=== PATIENT | female | born 1965 | race Caucasian/White ===

== ENCOUNTER → 2019-09-07 | Outpatient (CLI) | payer BC ==
[2019-09-07 18:07] LABS: Anisocytosis Slight; Basophils # (A) 0.1 k/uL (0-0.2); Basophils % (A) 1 %; Eosinophils # (A) 0.2 k/uL (0-0.7); Eosinophils % (A) 2 %; HCT 35.9 % (34.0-46.0); HGB 10.1 gm/dL (11.4-16.0); Hypochromasia Marked; Lymphocytes # (A) 1.8 k/uL (1.0-4.8); Lymphocytes % (A) 18 %; MCH 21.6 pg (25.0-35.0); MCHC 28.1 g/dL (31.0-37.0); MCV 76.8 fL (80.0-100.0); Mean Platelet Volume 6.2; Microcytosis Slight; Monocytes # (A) 0.5 k/uL (0-1.0); Monocytes % (A) 6 %; Neutrophils % (A) 71 %; Platelet Count 400 k/uL (150-450); RBC 4.67 m/uL (3.80-5.40); WBC 9.9 k/uL (3.8-10.6)
== END | disposition home or self-care (01) ==
LOC: LABT 17:15
PROVIDERS: ATTEND Obstetrics & Gynecology
DX: Z01.812 Encounter for preprocedural laboratory examination (principal); Z01.818 Encounter for other preprocedural examination; N93.8 Other specified abnormal uterine and vaginal bleeding; I10 Essential (primary) hypertension
CPT/HCPCS: 85025; 93005

== ENCOUNTER 2019-09-13 07:40 | Day surgery (SDC) | payer BC ==
[2019-09-08 13:18] VITALS: BMI 38.7
[~2019-09-13 07:40] MED LIST: DEXAMETHASONE SOD PHOSPHATE 10 MG/ML 1 ML VIAL IV ONE; LACTATED RINGERS 1,000 ML IV SCH; MIDAZOLAM 2 MG/2 ML VIAL IV PRN; ONDANSETRON 4 MG/2 ML VIAL IVP ONE; Pre Op ABX Message 1 EACH MISC MISCELLANE ONE; SCOPOLAMINE 1.5MG/72HR PATCH TRANSDERM ONE
[2019-09-13] MEDS ORDERED: LIDOCAINE 1% 20 ML VIAL (10MG/ML) FOR IV START INTRADERMA ONE (08:17)
[2019-09-13] MEDS ORDERED: SUCCINYLCHOLINE CHLORIDE 100 MG/5 ML SYR IV ONE (08:20)
[2019-09-13] MEDS ORDERED: LIDOCAINE 1% INJ 10MG/ML (20 ML MDV) ONE (08:20)
[2019-09-13] MEDS ORDERED: KETOROLAC 30 MG/ML 1 ML VIAL ONE (08:20)
[2019-09-13] MEDS ORDERED: PROPOFOL 10 MG/ML 20 ML VIAL IV ONE (08:20)
[2019-09-13] MEDS ORDERED: fentaNYL (PF) 50 MCG/ML 2 ML AMP ONE (08:20)
[2019-09-13] MEDS ORDERED: LIDOCAINE 1%-EPI 1:100,000 20 ML VIAL SUBMUCOSAL ONE (08:21)
--- NOTE | 2019-09-13 09:04 | P.OP ---
Date of Procedure: 09/13/19 Preoperative Diagnosis: Menometrorrhagia Anemia Postoperative Diagnosis: Same Procedure(s) Performed: Diagnostic hysteroscopy and NovaSure endometrial ablation Anesthesia: CONCHITA Surgeon: Tori Jarvis Estimated Blood Loss (ml): 5 IV fluids (ml): 700 Urine output (ml): 25 Pathology: none sent Condition: stable Disposition: PACU Operative Findings: Patulous cervix. Uterus with fluffy endometrium. Bilateral tubal ostia visual ized. No gross intracavitary lesions noted. Description of Procedure: After the patient was met in the preoperative holding area and all questions were answered, she was taken the operating room where anesthetic was administered without incident. Appropriate timeout procedure was undertaken. She was positioned, prepped and draped in the dorsal lithotomy position. Blad wilfrid was drained for approximately 25 mL of clear urine. Exam under anesthetic was undertaken. The patient has a second-degree cystocele and third degree rectocele. She second-degree cervical uterine prolapse with a large patulous cervix. There was no evidence of rectovaginal fistula. The cervix was grasped anteriorly with a single-tooth tenaculum and a paracervical block with lidocaine plus epinephrine was placed. This uterus was sounded to 11 cm. The cervix is already dilated oneither dilation was noted to allow for passage of the diagnostic hysteroscope. The hysteroscope was introduced and the above findings were noted. The hysteroscope was removed and the NovaSure ablation device was inserted. On cavity length was 6 cm with a width of 3.5 cm. There was a poor see around the cervix which was eventually resolved by replacement of a tenaculum to hold the NovaSure device in place. The cavity assessment test was then passed. The device was enabled for a treatment cycle 68 seconds at a power of 116 W. Following cessation of the treatment cycle the device was removed. The hysteroscope was reintroduced and desiccation of the endometrium was noted. The hysteroscope was then removed as was the tenaculum. The entire vagina was again inspected operative the patient's request and no evidence of any type of acute indication from the rectum to the vagina is noted. She does have large external hemorrhoids. All instruments were then removed and the patient was awoken from anesthetic. She was transported recovery area in stable condition. All counts reported to me as correct by the operating room staff.
[2019-09-13 09:16] VITALS: TEMP 97.1
[2019-09-13] MEDS: HYDROmorphone 0.5 MG/0.5 ML SYRINGE IVP PRN ×2 (09:24→09:31)
[2019-09-13] MEDS ORDERED: LACTATED RINGERS 1,000 ML IV ONE ×2 (09:58)
[2019-09-13] MEDS ORDERED: PROMETHAZINE INJ 25 MG/ML 1 ML VIAL IVPB ONE (10:22)
[2019-09-13 10:49] VITALS: RESP 18
[2019-09-13 11:42] VITALS: BP 123/75; PULSE 76
== END 2019-09-13 12:00 | disposition home or self-care (01) ==
LOC: OR 07:40
PROVIDERS: ATTEND Obstetrics & Gynecology
DX: N92.1 Excessive and frequent menstruation with irregular cycle (principal); Z79.82 Long term (current) use of aspirin; Z79.899 Other long term (current) drug therapy; J45.909 Unspecified asthma, uncomplicated; I10 Essential (primary) hypertension; K64.4 Residual hemorrhoidal skin tags
CPT/HCPCS: 81025; 58563; J1100; J2550; J2405; J2001; J3010; J1885; J0330; J2704; J1170